=== PATIENT | male | born 1945 | race Caucasian/White ===

== ENCOUNTER 2018-03-14 05:46 | Day surgery (SDC) | payer MEDICARE ==
[2018-03-14 06:45] LABS: #Basophils 0.1 thou/uL (0.0-0.2); #Eosinphils 0.2 thou/uL (0.0-0.7); #Lymphocytes 1.8 thou/uL (1.20-3.40); #Monocytes 0.6 thou/uL (0.11-0.59); #Neutrophils 2.5 thou/uL (1.40-6.50); %Basophils 1.4 % (0.0-1.0); %Eosinophils 3.3 % (0.0-10.0); %Lymphocytes 35.1 % (21.0-51.0); %Monocytes 11.2 % (0.0-10.0); %Neutrophils 48.9 % (42.0-75.0); Mean Corpuscular HGB CONC 33.6 g/dL (32.0-36.0); Mean Corpuscular Hemoglobin 30.6 pg (27.0-31.0); Mean Platelet Volume 7.4 fL (7.4-10.4); Platelet Count 139 thou/uL (130-400); Red Blood Cell (RBC) Count 4.56 mill/uL (4.70-6.10)
[2018-03-14 06:49] LABS: INR-International Normal Ratio 1.1; Prothrombin Time 14.3 SEC (12.0-14.7)
[2018-03-14 06:50] LABS: PTT 35.9 SEC (22.9-36.1)
[2018-03-14 07:05] LABS: Anion Gap 13 mmol/L (10-20); BUN (Urea Nitrogen) 19 mg/dL (8.4-25.7); Calc. Creatinine Clearance 0 mL/min (70-130); Calcium 9.4 mg/dL (7.8-10.44); Carbon Dioxide 27 mmol/L (23-31); Chloride 106 mmol/L (98-107); Estimated GFR-MDRD 81; Glucose 109 mg/dL (83-110); Potassium 4.3 mmol/L (3.5-5.1); Sodium 142 mmol/L (136-145)
--- NOTE | 2018-03-14 08:22 | PRG ---
DATE OF SERVICE: 03/14/2018 REFERRING PHYSICIAN: Dr. Maeve Hough I am seeing Mr. Ring at our [facility] outpatient department as a followup. SUBJECTIVE: Mr. Ring is here for an elective LAURA guided cardioversion. In the office he was noted to be in atypical atrial flutter. We placed him back on anticoagulants and expedited his cardioversi on, planned the LAURA to rule out clots. Now he spontaneously seems to be back in sinus rhythm and the refore, the cardioversion and the LAURA will be canceled. On further questioning, he is currently doin g fair. At times he is more short of breath than usual, at times he is back to normal. I suspect th is correlates to his atrial fibrillation/atrial flutter episodes. He has not had any bleeding issues on Eliquis, had no stroke-like symptoms documented. The rest of 12-point system otherwise unremarkable. OBJECTIVE: VITAL SIGNS: Blood pressure is 129/85, heart rate 56, respiration is 12, oxygen saturation 96%. GENERAL: Alert and oriented man in no apparent distress. NECK: Supple. Jugular veins not distended. CHEST: Coarse without crackles. CARDIOVASCULAR: Heart sounds are regular to rate and rhythm, but bradycardic. No murmur or gallop. Midsternal scar is appreciated. ABDOMEN: Benign. Bowel sounds positive. EXTREMITIES: Lower extremity without edema, clubbing or cyanosis. DATABASE: EKGs reviewed revealing sinus bradycardia at rate of 53 beats per minute, first degree AV block is noted to 86 milliseconds. The lab work was reviewed revealing white count 5, hemoglobin 14, platelet count 139. INR 1.1. Sodi um 142, potassium 4.3, BUN is 19, creatinine 0.92. ASSESSMENT AND PLAN: Mr. Ring is a pleasant 72-year-old man with history of atrial fibrillation and ablation in the past. Also, history of mitral valve repair. Now he has developed atrial flutter an d we planned cardioversion, but he spontaneously converted back to sinus rhythm. Apparently, he is m ore paroxysmal in nature. He does have some symptoms with dyspnea at times and he is an avid runner which limits his activities. PLAN: We discussed the treatment options. At this point, I would prefer to continue Eliquis and we discussed the option of continued observation on the current state versus antiarrhythmic agents or an ablation procedure. He is more keen on undergoing an ablation procedure and we will make arrangemen ts for that to happen in the near future. We will organize an echocardiogram to evaluate his current cardiac function and also possibly a stress test prior to the ablation. We will see him back in the office in the near future. Thank you for allowing me to participate in the care of your patient.
--- NOTE | 2018-03-15 15:13 | EKG ---
Test Reason : PREOP CARDIOVESION Blood Pressure : / mmHG Vent. Rate : 053 BPM Atrial Rate : 053 BPM P-R Int : 286 ms QRS Dur : 122 ms QT Int : 496 ms P-R-T Axes : 041 -32 -13 degrees QTc Int : 465 ms Sinus bradycardia with 1st degree A-V block Left axis deviation Non-specific intra-ventricular conduction delay Abnormal ECG No previous ECGs available Confirmed by RAJ SNIDER, DMITRI ([id number]) on 03/15/2018 3:12:50 PM Referred By: JEREMIAH Confirmed By:DMITRI ANTHONY MD
== END 2018-03-14 08:46 | disposition home or self-care (01) ==
LOC: CCL 05:46 → SDC/OP 08:46
PROVIDERS: ATTEND Internal Medicine Cardiovascular Disease
DX: I48.4 Atypical atrial flutter (principal); I48.0 Paroxysmal atrial fibrillation; Z53.8 Procedure and treatment not carried out for other reasons; Z79.82 Long term (current) use of aspirin; Z79.01 Long term (current) use of anticoagulants; Z79.899 Other long term (current) drug therapy; Z95.2 Presence of prosthetic heart valve; Z98.890 Other specified postprocedural states
CPT/HCPCS: 80048; 85025; 85610; 85730; 93005; 93010; 93306

== ENCOUNTER 2018-04-01 08:02 | Outpatient (CLI) | payer MEDICARE ==
--- NOTE | 2018-04-01 13:02 | NM ---
RADIONUCLIDE STRESS REST MYOCARDIAL PERFUSION SCAN WITH CT ATTENUATION CORRECTION AND SPECT IMAGING LEFT VENTRICULAR WALL MOTION EVALUATION WITH EJECTION FRACTION: History: Atrial fibrillation. Chest pain. FINDINGS: Lexiscan protocol. Heterogeneous uptake of radiotracer throughout the left ventricular myocardium. No focal perfusion defect or reversibility. QGS analysis of the SPECT images shows global hypokinesis. Some dyskinesis of the base of the lateral wall. Left ventricular ejection fraction is calculated at 45%. IMPRESSION: 1. Normal perfusion scan showing no evidence of ischemia. 2. Hypokinesis with depressed ejection fraction of 45%. POS: JEAN
[2018-04-01] MEDS ORDERED: Regadenoson 0.4 MG/5 ML SYRINGE ONE (14:23)
== END 2018-04-01 08:03 | disposition home or self-care (01) ==
LOC: NM 08:02
PROVIDERS: ATTEND Internal Medicine Cardiovascular Disease
DX: I48.0 Paroxysmal atrial fibrillation (principal)
CPT/HCPCS: 78452; 93017; A9500; J2785